=== PATIENT | male | born 1975 | race African-American/Black ===

== ENCOUNTER 2017-08-27 12:53 | Emergency (ER) | payer SELFPAY ==
[2017-08-27] MEDS ORDERED: Sodium Chloride 0.9% 1,000 ML IV ONE (14:09)
[2017-08-27] MEDS ORDERED: Ondansetron 4 MG/2 ML SDV IVPUSH ONE (14:13)
[2017-08-27] MEDS ORDERED: Ketorolac 30 MG/ML SDV IVPUSH ONE (14:13)
--- NOTE | 2017-08-27 14:30 | EDM.PDOC ---
ED HPI GENERAL MEDICAL PROBLEM - General Chief Complaint: Gastrointestinal Problem Stated Complaint: VOMITING Time Seen by Provider: 08/27/17 13:27 Source of Information: Reports: Patient History Limitations: Reports: No Limitations - History of Present Illness INITIAL COMMENTS - FREE TEXT/NARRATIVE: History of present illness: [42-year-old male presenting with complaints of nausea, cough, and diarrhea. Patient acute she has not vomited because he doesn't routinely vomit and that her how sick. But that he's been coughing up fast quantities of mucus and he feels like he has had a fever off and on with chills. Patient is unable to say how high his temperature is gotten due to lack of ability to take his temperature/thermometer.] Review of systems: As per history of present illness and below otherwise all systems reviewed and negative. Past medical history: As per history of present illness and as reviewed below otherwise noncontributory. Surgical history: As per history of present illness and as reviewed below otherwise noncontributory. Social history: No reported history of drug or alcohol abuse. Family history: As per history of present illness and as reviewed below otherwise noncontributory. Physical exam: HEENT: Atraumatic, normocephalic, pupils reactive, negative for conjunctival pallor or scleral icterus, mucous membranes moist, throat clear, neck supple, nontender, trachea midline. Lungs: Diminished throughout with harsh nonproductive cough otherwise breath sounds equal bilaterally, chest nontender. Heart: S1S2, regular, negative for clicks, rubs, or JVD. Abdomen: Soft, nondistended, nontender. Negative for masses or hepatosplenomegaly. Negative for costovertebral tenderness. Pelvis: Stable nontender. Genitourinary: Deferred. Rectal: Deferred. Extremities: Atraumatic, negative for cords or calf pain. Neurovascular unremarkable. Neuro: Awake, alert, oriented. Cranial nerves II through XII unremarkable. Cerebellum unremarkable. Motor and sensory unremarkable throughout. Exam nonfocal. All diagnostics are within normal limits. Patient indicates he feels significantly better with the hydration and the respiratory therapy treatment Diagnostics: [CBC, CMP, influenza AB] Therapeutics: [Duo neb, Toradol, IV fluid] Impression: Viral syndrome [] Plan: [Rest hydrate Zofran for nausea] Definitive disposition and diagnosis as appropriate pending reevaluation and review of above. - Related Data Allergies Allergy/AdvReac Type Severity Reaction Status Date / Time No Known Allergies Allergy Verified 08/27/17 13:46 Home Meds: Home Meds . [No Known Home Meds] 08/27/17 [History] Social & Family History - Family History Family Medical History: Noncontributory - Tobacco Use Smoking Status *Q: Unknown Ever Smoked - Recreational Drug Use Recreational Drug Use: No ED ROS GENERAL - Review of Systems Review Of Systems: See Below (See history of present illness) ED EXAM, GENERAL - Physical Exam Exam: See Below (See history of present illness) Course - Vital Signs Last Recorded V/S: Last Vital Signs Temp 36.8 C 08/27/17 13:50 Pulse 93 08/27/17 13:50 Resp 16 08/27/17 13:50 BP 137/72 08/27/17 13:50 Pulse Ox 94 L 08/27/17 13:50 - Orders/Labs/Meds Orders: Active Orders 24 hr Category Date Time Status RT Aerosol Therapy [RC] ASDIRECTED Care 08/27/17 14:31 Active CXR [Chest 2V] [CR] Stat Exams 08/27/17 15:50 Ordered CULTURE STREP A CONFIRMATION [RM] Stat Lab 08/27/17 14:46 Results STREP SCRN A RAPID W CULT CONF [RM] Stat Lab 08/27/17 14:09 Uncollected Labs: Laboratory Tests 08/27/17 08/27/17 08/27/17 Range/Units 14:30 14:30 14:30 WBC 5.36 (4.0-11.0) K/uL RBC 5.30 (4.50-5.90) M/uL Hgb 15.4 (13.0-17.0) g/dL Hct 45.3 (38.0-50.0) % MCV 85.5 (80.0-98.0) fL MCH 29.1 (27.0-32.0) pg MCHC 34.0 (31.0-37.0) g/dL RDW Std Deviation 41.2 (28.0-62.0) fl RDW Coeff of Panchito 13 (11.0-15.0) % Plt Count 139 L (150-400) K/uL MPV 11.50 (7.40-12.00) fL Add Manual Diff YES Neutrophils % (Manual) 54 (48.0-80.0) % Band Neutrophils % 12 % Lymphocytes % (Manual) 21 (16.0-40.0) % Monocytes % (Manual) 12 (0.0-15.0) % Eosinophils % (Manual) 1 (0.0-7.0) % Nucleated RBC % 0.0 /100WBC Absolute Seg Neuts 2.9 (1.4-5.7) Band Neutrophils # 0.6 Lymphocytes # (Manual) 1.1 (0.6-2.4) Monocytes # (Manual) 0.6 (0.0-0.8) Eosinophils # (Manual) 0.1 (0.0-0.7) Nucleated RBCs # 0 K/uL Sodium 137 (136-146) mmol/L Potassium 3.7 (3.5-5.1) mmol/L Chloride 101 (98-110) mmol/L Carbon Dioxide 24 (21-31) mmol/L BUN 11 (6.0-23.0) mg/dL Creatinine 1.3 (0.6-1.5) mg/dL Est Cr Clr Drug Dosing 81.25 mL/min Estimated GFR (MDRD) > 60.0 ml/min Glucose 94 (60-110) mg/dL Calcium 8.8 (8.8-10.8) mg/dL Total Bilirubin 0.9 (0.1-1.5) mg/dL AST 37 (5-40) IU/L ALT 27 (8-54) IU/L Alkaline Phosphatase 90 (40-150) Troponin I < 0.10 (0.0-0.29) NG/ML Total Protein 7.9 (6.0-8.0) g/dL Albumin 4.1 (3.5-5.0) g/dL Globulin 3.8 H (2.0-3.5) g/dL Albumin/Globulin Ratio 1.1 L (1.3-2.8) Meds: Medications Discontinued Medications Generic Name Dose Route Start Last Admin Trade Name Freq PRN Reason Stop Dose Admin Albuterol/Ipratropium 3 ml 08/27/17 14:31 08/27/17 14:59 Duoneb 3.0-0.5 Mg/3 Ml NEB 08/27/17 14:32 3 ml ONETIME ONE Administration Sodium Chloride 1,000 mls @ 999 mls/hr 08/27/17 14:09 08/27/17 14:42 Normal Saline IV 08/27/17 15:09 999 mls/hr STAT ONE Administration Ketorolac Tromethamine 30 mg 08/27/17 14:13 08/27/17 14:50 Toradol IVPUSH 08/27/17 14:14 30 mg ONETIME ONE Administration Ondansetron HCl 4 mg 08/27/17 14:13 08/27/17 14:35 Zofran IVPUSH 08/27/17 14:14 4 mg ONETIME ONE Administration Departure - Departure Time of Disposition: 16:30 Disposition: Home, Self-Care 01 Condition: Good Clinical Impression: Viral syndrome - Discharge Information Instructions: Viral Gastroenteritis, Adult, [id number] Referrals: PCP,None [Primary Care Provider] - Forms: ED Department Discharge Additional Instructions: The following information is given to patients seen in the emergency department who are being discharged to home. This information is to outline your options for follow-up care. We provide all patients seen in our emergency department with a follow-up referral. The need for follow-up, as well as the timing and circumstances, are variable depending upon the specifics of your emergency department visit. If you don't have a primary care physician on staff, we will provide you with a referral. We always advise you to contact your personal physician following an emergency department visit to inform them of the circumstance of the visit and for follow-up with them and/or the need for any referrals to a consulting specialist. The emergency department will also refer you to a specialist when appropriate. This referral assures that you have the opportunity for follow-up care with a specialist. All of these measure are taken in an effort to provide you with optimal care, which includes your follow-up. Under all circumstances we always encourage you to contact your private physician who remains a resource for coordinating your care. When calling for follow-up care, please make the office aware that this follow-up is from your recent emergency room visit. If for any reason you are refused follow-up, please contact the [facility] Emergency Department at and asked to speak to the emergency department charge nurse. Take medication as directed and needed Rest hydrate Follow-up with primary care provider in 2-3 days Return to ED as needed as discussed - My Orders Last 24 Hours: My Active Orders 08/27/17 14:09 STREP SCRN A RAPID W CULT CONF [RM] Stat 08/27/17 14:31 RT Aerosol Therapy [RC] ASDIRECTED 08/27/17 14:46 CULTURE STREP A CONFIRMATION [RM] Stat 08/27/17 15:50 CXR [Chest 2V] [CR] Stat - Assessment/Plan Last 24 Hours: My Active Orders 08/27/17 14:09 STREP SCRN A RAPID W CULT CONF [RM] Stat 08/27/17 14:31 RT Aerosol Therapy [RC] ASDIRECTED 08/27/17 14:46 CULTURE STREP A CONFIRMATION [RM] Stat 08/27/17 15:50 CXR [Chest 2V] [CR] Stat
[2017-08-27] MEDS ORDERED: Albuterol/Ipratropium 3.0-0.5 MG/3 ML Neb Soln NEB ONE (14:31)
[2017-08-27 15:08] LABS: CHLORIDE,CL 101 mmol/L (98-110); SODIUM,NA 137 mmol/L (136-146)
--- NOTE | 2017-08-29 10:23 | CR ---
EXAM DATE: 08/27/17 PATIENT'S AGE: 42 Patient: SILVESTRE HERNANDEZ Facility: [place], [place] Site . Site : [id number] Study: XRay Chest -08/27/2017 4:09:04 PM Ordering Physician: Doctor Hightower Final Report: INDICATION: SOB TECHNIQUE: Two view chest. FINDINGS: The lungs are clear. The heart, mediastinum and pulmonary vessels are of normal size. There is no evidence of pleural disease. IMPRESSION: Negative chest. Dictated by Josette Santiago MD @ Aug 27 2017 4:21PM (Electronic Signature) Report Signed by Proxy. ARCHIE
== END 2017-08-27 16:57 | disposition home or self-care (01) ==
LOC: MW.ED 12:53
DX: B34.9 Viral infection, unspecified (principal)
CPT/HCPCS: 36415; 71046; 80053; 84484; 85025; 87081; 87804; 87880; 94640; 96374; 96375; 99284; J1885; J2405; J7040; 99283

== ENCOUNTER 2019-01-24 14:17 | Emergency (ER) | payer OTHER ==
--- NOTE | 2019-01-24 14:44 | EDM.PDOC ---
ED HPI GENERAL MEDICAL PROBLEM - General Chief Complaint: Lower Extremity Injury/Pain Stated Complaint: HIT BY A PIPE Time Seen by Provider: 01/24/19 14:44 Source of Information: Reports: Patient - History of Present Illness INITIAL COMMENTS - FREE TEXT/NARRATIVE: HISTORY AND PHYSICAL: History of present illness: [Patient was struck by coiled tubing yesterday while at work, and unable to bear weight since, was seen initially through the [place] building. No head injury or loss of consciousness no other injury described, complains of left lower extremity pain; knee and tibia 5 out of 10 tolerable at rest but unable to bear weight with increasing pain No fever nausea vomiting chills sweats no chest pain shortness breath headache dizziness palpitation no bowel or urine symptoms Patient describes mechanism of injury as 3 inch coiled tubing strung out 100 feet he was straddling the pipe and cutting with a band saw, he states as he cut approximately half an inch into the coiled tubing, and the "tubing exploded " snapping like a whip. 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 Past medical history: As per history of present illness and as reviewed below otherwise noncontributory. Surgical history: As per history of present illness and as reviewed below otherwise noncontributory. Social history: No reported history of drug or alcohol abuse. Family history: As per history of present illness and as reviewed below otherwise noncontributory. Physical exam: HEENT: Atraumatic, normocephalic, pupils reactive, negative for conjunctival pallor or scleral icterus, mucous membranes moist, throat clear, neck supple, nontender, trachea midline. Lungs: Clear to auscultation, breath sounds equal bilaterally, chest nontender. Heart: S1S2, regular, negative for clicks, rubs, or JVD. Abdomen: Soft, nondistended, nontender. Negative for masses or hepatosplenomegaly. Negative for costovertebral tenderness. Pelvis: Stable nontender. Genitourinary: Deferred. Rectal: Deferred. Extremities: Atraumatic, negative for cords or calf pain. Neurovascular unremarkable. Lower extremity hip and ankle appear unaffected swelling and tenderness about the knee lateral joint line tenderness noted and slight laxity compared to right although limited exam due to pain, again swelling is noted over the anterior tibia mid shaft with palms sized contusion post lesion is tender as well the entire limb is neurovascularly intact Neuro: Awake, alert, oriented. Cranial nerves II through XII unremarkable. Cerebellum unremarkable. Motor and sensory unremarkable throughout. Exam nonfocal. Skin no open lesion contusion swelling and tenderness midshaft tibia left lower extremity otherwise unremarkable Diagnostics: [Left knee 3 views Tib-fibLeft ] Therapeutics: Toradol 10 mg by mouth now ] Immobilizer Crutches Nonweightbearing [place] sedentary duty until follow-up with orthopedist Impression: [ lower extremity injury ] Can't rule out ligamentous injury due to limited exam secondary to pain Definitive disposition and diagnosis as appropriate pending reevaluation and review of above. left lower leg Pain Score (Numeric/FACES): 3 - Related Data Allergies Allergy/AdvReac Type Severity Reaction Status Date / Time No Known Allergies Allergy Verified 01/24/19 14:34 Home Meds: Home Meds . [No Known Home Meds] 01/24/19 [History] Past Medical History - Past Surgical History Musculoskeletal Surgical History: Reports: Other (See Below) Other Musculoskeletal Surgeries/Procedures:: Right ANkle Social & Family History - Family History Family Medical History: Noncontributory - Tobacco Use Smoking Status *Q: Current Every Day Smoker Years of Tobacco use: 10 Packs/Tins Daily: 0.2 - Recreational Drug Use Recreational Drug Use: No Review of Systems - Review of Systems Review Of Systems: See Below ED EXAM, GENERAL - Physical Exam Exam: See Below Course - Vital Signs Last Recorded V/S: Last Vital Signs Temp 97.5 F 01/24/19 14:31 Pulse 96 01/24/19 14:31 Resp 18 01/24/19 14:31 BP 152/87 H 01/24/19 14:31 Pulse Ox 94 L 01/24/19 14:31 - Orders/Labs/Meds Orders: Active Orders 24 hr Category Date Time Status Knee 3V Lt [CR] Stat Exams 01/24/19 14:43 Taken Tibia Fibula Lt [CR] Stat Exams 01/24/19 14:44 Taken Departure - Departure Time of Disposition: 15:31 Disposition: Home, Self-Care 01 Condition: Good Clinical Impression: Injury of left lower extremity - Discharge Information Referrals: PCP,None [Primary Care Provider] - Forms: ED Department Discharge Additional Instructions: ImMobilizer-left knee Crutches Nonweightbearing Medication as prescribed Return if symptoms persist or worsen Follow up with orthopedist, call phone number below to schedule appropriate follow-up [facility] [address], [address] [place] [address] my orthopedic The following information is given to patients seen in the emergency department who are being discharged to home. This information is to outline your options for follow-up care. We provide all patients seen in our emergency department with a follow-up referral. The need for follow-up, as well as the timing and circumstances, are variable depending upon the specifics of your emergency department visit. If you don't have a primary care physician on staff, we will provide you with a referral. We always advise you to contact your personal physician following an emergency department visit to inform them of the circumstance of the visit and for follow-up with them and/or the need for any referrals to a consulting specialist. The emergency department will also refer you to a specialist when appropriate. This referral assures that you have the opportunity for follow-up care with a specialist. All of these measure are taken in an effort to provide you with optimal care, which includes your follow-up. Under all circumstances we always encourage you to contact your private physician who remains a resource for coordinating your care. When calling for follow-up care, please make the office aware that this follow-up is from your recent emergency room visit. If for any reason you are refused follow-up, please contact the [facility] emergency department at and asked to speak to the emergency department charge nurse. - My Orders Last 24 Hours: My Active Orders 01/24/19 14:43 Knee 3V Lt [CR] Stat 01/24/19 14:44 Tibia Fibula Lt [CR] Stat - Assessment/Plan Last 24 Hours: My Active Orders 01/24/19 14:43 Knee 3V Lt [CR] Stat 01/24/19 14:44 Tibia Fibula Lt [CR] Stat
--- NOTE | 2019-01-24 15:32 | CR ---
INDICATION: Left knee pain TECHNIQUE: Three views left knee COMPARISON: None FINDINGS: Bones: Alignment is normal. No fractures or bone lesions. Joint spaces: Narrowing medial compartment. Marginal osteophytes medial lateral compartments. Superior and inferior patellar spurs. Soft tissues: Unremarkable. IMPRESSION: Narrowing of the medial compartment. Marginal osteophytes involving the medial lateral compartment and patellofemoral compartment. Dictated by Trey Blas MD @ 01/24/2019 3:30:50 PM Dictated by: Trey Blas MD @ 01/24/2019 15:31:00 (Electronically Signed)
--- NOTE | 2019-01-24 15:35 | CR ---
INDICATION: Pain TECHNIQUE: Three views left knee COMPARISON: None FINDINGS: Bones: Alignment is normal. No fractures or bone lesions. Joint spaces: Narrowing of the medial compartment. Marginal osteophytes involving the medial compartment and patellofemoral compartment. Soft tissues: Unremarkable. IMPRESSION: Narrowing of the medial compartment. Marginal osteophytes involving the medial compartment and patellofemoral compartment. Dictated by Trey Blas MD @ 01/24/2019 3:33:24 PM Dictated by: Trey Blas MD @ 01/24/2019 15:33:32 (Electronically Signed)
[2019-01-24] MEDS ORDERED: Ketorolac 10 MG Tab PO ONE (15:40)
== END 2019-01-24 16:35 | disposition home or self-care (01) ==
LOC: MW.ED 14:17
DX: S89.92XA Unspecified injury of left lower leg, initial encounter (principal); W22.8XXA Striking against or struck by other objects, initial encounter
CPT/HCPCS: 73562; 73590; 99283; A9270

== ENCOUNTER 2019-01-25 14:17 | Emergency (ER) | payer OTHER | END 2019-01-25 15:04 | disposition left against medical advice (07) | LOC: MW.ED 14:17 | DX: Z53.21 Procedure and treatment not carried out due to patient leaving prior to being seen by health care provider (principal) ==